=== PATIENT | female | born 1965 | race Caucasian/White ===

== ENCOUNTER 2018-05-27 13:54 | Observation (INO) ==
[2018-05-27] MEDS ORDERED: Morphine Sulfate Inj 2 MG/ML Vial IV.PUSH PRN (17:44)
[2018-05-27] MEDS ORDERED: Aspirin 325 MG Tablet PO ONE (17:45)
[2018-05-27] MEDS ORDERED: Sod Chloride 0.9% Inj 1,000 ML IV.CONT SCH (17:45)
[2018-05-27 21:27] LABS: Creatine Kinase 51 U/L (26-192)
[2018-05-27] MEDS ORDERED: Acetaminophen 325 MG Tablet PO PRN (23:48)
[2018-05-28 00:36] VITALS: RESP 18
[2018-05-28 02:28] LABS: Chol/HDL Ratio 3.51 Ratio; HDL Cholesterol 59.1 mg/dL (40.0-60.0)
[2018-05-28] MEDS: Acetaminophen 325 MG Tablet PO PRN ×2 (07:46→16:50)
--- NOTE | 2018-05-28 09:02 | P.HPIM ---
History of Present Illness Primary Care Physician: UNKNOWN Chief Complaint: Chest pain History of Present Illness: This is a 53-year-old female patient with a known medical history of CAD, hypertension, hyperlipidemia and hypothyroidism who presented to the ED with complaints of chest pain. Patient states that 3 days ago when she was resting in bed she was awoken out of sleep due to a midsternal chest pain, she states that the pain is pressure-like in nature, rated an 8 out of 10 at its worst on pain scale, states that the pain comes and goes for several minutes and then goes away on its own without any known aggravating or alleviating factors. She states the pain started in the midsternal chest and radiated up her right and left shoulders and into her head. She does admit to associated nausea, shortness of breath and diaphoresis, denies any actual vomiting. Patient denies any new changes to her medications. Follows closely with her primary care physician. She does not follow with a chemist pharmaceutical. She does admit to undergoing a cardiac cath roughly 1-1/2 years ago and at that time no stent was placed but she was told that she had a 65% blockage in 1 of her arteries which she cannot recall which one. She does not take an aspirin a day. Denies any recent illness including fever, chills, cough, headache, dumping, nausea, vomiting, diarrhea or dysuria. She does admit to a significant family medical history of her father dying at the age of 52 secondary to a heart attack. Review of Systems Review of Systems: all other systems reviewed are negative [facility] Medical History Medical History Hyperlipemia (Acute) Hypertension (Acute) Hypothyroid (Acute) Surgical History Surgical History History of cholecystectomy (Acute) Social History Social History Substance History: No History of Abuse Second Hand Smoke Exposure: No Smoking Status: Never smoker How Often Do You Have a Drink Containing Alcohol: Never Recent Travel in [facility] within the Last 8 Weeks: No Recent Out of Country Travel within the Last 8 Weeks: No Medications and Allergies Allergies Allergy/AdvReac Type Severity Reaction Status Date / Time penicillin G Allergy Intermediate RASH, Unverified 05/27/18 14:15 DIZZINESS aspirin AdvReac Intermediate Ulcers Verified 05/27/18 14:15 Home Medications Medication Instructions Recorded Confirmed Type levothyroxine 0.125 mg.pe PO DAILY 05/27/18 05/27/18 History lisinopril [Prinivil] 10 mg PO DAILY 05/27/18 05/27/18 History pravastatin 10 mg PO DAILY 05/27/18 05/27/18 History Active Medications: Active Medications Acetaminophen (Tylenol) 650 mg PO Q4H PRN PRN Reason: HEADACHE OR TEMP > 101 F Last Admin: 05/28/18 07:46 Dose: 650 mg Sodium Chloride (Ns Inj) 1,000 mls @ 42 mls/hr IV.CONT .[id number] RICKI Last Admin: 05/27/18 20:25 Dose: 42 mls/hr Morphine Sulfate (Morphine Inj) 2 mg IV.PUSH Q4H PRN PRN Reason: PAIN SCALE 1 TO 10 Last Admin: 05/27/18 22:38 Dose: 2 mg Nitroglycerin (Nitrostat Sl) 0.4 mg SL Q5M PRN PRN Reason: CHEST PAIN Last Admin: 05/27/18 23:25 Dose: 0.4 mg Sodium Chloride (Ns Flush) 2 ml IV.FLUSH BID RICKI Last Admin: 05/27/18 20:27 Dose: 2 ml Sodium Chloride (Ns Flush) 2 ml IV.FLUSH PRN PRN PRN Reason: FLUSH AFTER USING IV ACCESS Physical Exam Vital signs: Vital Signs 05/27/18 20:00 05/27/18 20:30 05/27/18 23:25 Temperature 97.7 F Pulse Rate 63 63 Respiratory Rate 18 16 Blood Pressure 132/75 Pulse Oximetry 98 05/28/18 00:00 05/28/18 04:00 Temperature 97.0 F L 97.2 F L Pulse Rate 65 66 Respiratory Rate 18 18 Blood Pressure 119/61 94/52 L Pulse Oximetry 98 98 Intake & Output 05/27/18 05/28/18 05/28/18 18:59 06:59 18:59 Intake Total 200 / 200 Balance 200 / 200 Weight 73.3 kg Intake: Oral Supplement 200 / 200 Other: # Voids 2 Date of Last Bowel Movement 05/27/18 Weight On Admission 73.3 kg Narrative: GENERAL: Well-developed, well-nourished patient in NAD. SKIN: Warm and dry. No rash. HEAD: Normocephalic. Atraumatic. EYES: Pupils equal and round. No scleral icterus. No injection or drainage. ENT: No nasal bleeding or discharge. Mucous membranes pink and moist. NECK: Supple. Trachea midline. CARDIOVASCULAR: Regular rate and rhythm. S1, S2 noted. No murmur appreciated. No chest pain to palpation RESPIRATORY: No accessory muscle use. Clear to auscultation. Breath sounds equal bilaterally. GASTROINTESTINAL: Abdomen soft, non-tender, nondistended. Normoactive bowel sounds x4. MUSCULOSKELETAL: No obvious deformities. Extremities without clubbing, cyanosis , or edema. NEUROLOGICAL: Awake and alert. No obvious cranial nerve deficits. Motor grossly within normal limits. 5/5 muscle strength in bilateral upper and lower extremities. Normal speech. PSYCHIATRIC: Appropriate mood and affect; insight and judgment normal. Caprini VTE Risk Assessment Caprini VTE Risk Assessment: No/Low Risk (score <= 1) Caprini Risk Assessment Model: Point Value = 1 Point Value = 2 Point Value = 3 Point Value = 5 Age 41-60 Minor surgery BMI > 25 kg/m2 Swollen legs Varicose veins or History of unexplained or recurrent spontaneous Oral contraceptives or hormone replacement Sepsis (< 1 month) Serious lung disease, including pneumonia (< 1 month) Abnormal pulmonary function Acute myocardial infarction Congestive heart failure (< 1 month) History of inflammatory bowel disease Medical patient at bed rest Age 61-74 Arthroscopic surgery Major open surgery (> 45 min) Laparoscopic surgery (> 45 min) Malignancy Confined to bed (> 72 hours) Immobilizing plaster cast Central venous access Age >= 75 History of VTE Family history of VTE Factor V Leiden Prothrombin [id number] Lupus anticoagulant Anticardiolipin antibodies Elevated serum homocysteine Heparin-induced thrombocytopenia Other congenital or acquired thrombophilia Stroke (< 1 month) Elective arthroplasty Hip, pelvis, or leg fracture Acute spinal cord injury (< 1 month) Prophylaxis Regimen: Total Risk Factor Score Risk Level Prophylaxis Regimen 0-1 Low Early ambulation 2 Moderate Order ONE of the following: *Sequential Compression Device (SCD) *Heparin 5000 units SQ BID 3-4 Higher Order ONE of the following medications: *Heparin 5000 units SQ TID *Enoxaparin/Lovenox 40 mg SQ daily (WT < 150 kg, CrCl > 30 mL/min) *Enoxaparin/Lovenox 30 mg SQ daily (WT < 150 kg, CrCl > 10-29 mL/min) *Enoxaparin/Lovenox 30 mg SQ BID (WT < 150 kg, CrCl > 30 mL/min) AND/OR *Sequential Compression Device (SCD) 5 or more Highest Order ONE of the following medications: *Heparin 5000 units SQ TID (Preferred with Epidurals) *Enoxaparin/Lovenox 40 mg SQ daily (WT < 150 kg, CrCl > 30 mL/min) *Enoxaparin/Lovenox 30 mg SQ daily (WT < 150 kg, CrCl > 10-29 mL/min) *Enoxaparin/Lovenox 30 mg SQ BID (WT < 150 kg, CrCl > 30 mL/min) AND *Sequential Compression Device (SCD) Assessment and Plan Plan This is a 53-year-old female patient with no medical history of CAD, hypertension, hyperlipidemia and hypothyroidism who presented the ED with complaints of chest pain. Chest pain -Patient presents with a 3-day complaint of intermittent chest pressure. She has been admitted to the chest pain center for observation. -Serial EKGs and serial troponins been ordered for ruling out ACS purposes. Troponin trend flat. -EKG reviewed showing controlled heart rate, normal sinus rhythm, no ST changes to indicate any ischemia. -Patient continue on cardiac telemetry, monitor for any arrhythmias. None noted at this time. -Chest x-ray reviewed showing no acute cardiopulmonary disease. -Chest pain is now controlled. We will continue to monitor. -Patient has a significant history of her father having an [place] at the age of 52. Does have hyperlipidemia as well as hypertension and history of CAD. -Last cardiac cath was 1-1/2 years ago and at that time was told she had a 65% blockage in 1 of her arteries. -ACS ruled out with serial EKGs and serial troponins, patient will undergo cardiac myocardial perfusion scan to further rule out any ischemia. -Patient stable this time and agreeable to plan. Further hospitalization and treatment plan will depend on nuclear imaging results. Hypertension -Patient's blood pressure with systolic in the 90s, will hold lisinopril for now. Continue to monitor blood pressure trends. Hypothyroidism -Will continue home levothyroxine. Stable at this time. DVT prophylaxis: SCDs. Ambulation. Discussed with patient, Dr. pontey H&P: Quality VTE Deep Vein Thrombosis/Pulmonary Embolism Present on Admission: No
[2018-05-28] MEDS ORDERED: Regadenoson Inj 0.4 MG/5 ML Syringe IV.PUSH ONE (09:19)
[2018-05-28 09:44] VITALS: BP 111/60; TEMP 96.6
[2018-05-28] MEDS ORDERED: Levothyroxine 125 MCG Tablet PO SCH (10:00)
--- NOTE | 2018-05-28 10:07 | ECG ---
Date Performed: 05/27/2018 Time Performed: 20:44:43 PTAGE: 53 years EKG: Sinus rhythm WITH SHORT LA INTERVAL BORDERLINE ECG No significant change PREVIOUS TRACING : 05/27/2018 17.10 DOCTOR: Norman Soriano Interpretating Date/Time 05/28/2018 10:06:40
--- NOTE | 2018-05-28 10:10 | ECG ---
Date Performed: 05/27/2018 Time Performed: 17:10:26 PTAGE: 53 years EKG: SINUS BRADYCARDIA BORDERLINE ECG Nonspecific T wave changes persist but normalized somewhat since previous NO PREVIOUS TRACING DOCTOR: Norman Soriano Interpretating Date/Time 05/28/2018 10:08:45
--- NOTE | 2018-05-28 13:15 | NM ---
EXAM DATE: 05/28/2018 1:02 PM EST AGE/SEX: 53 years / Female INDICATIONS:Angina. . Substernal chest pain. CLINICAL DATA: This is the patient's initial encounter. Patient reports that signs and symptoms have been present for 1 day and indicates a pain score of 3/10. MEDICAL/SURGICAL HISTORY: Hypertension. Hypothyroidism. Cholecystectomy. Hysterectomy. COMPARISON: No prior exams available for comparison. DOSE: 8.5 mCi Tc 99m Myoview at rest 25.4 mCi [id number] at stress 0.4 mg Lexiscan STRESS SYMPTOMS: Dyspnea, chest pressure, stomach pressure and headache. EJECTION FRACTION: 62 % TECHNIQUE: The patient underwent pharmacologic stress with infusion of prescribed dose. Continuous ECG tracing was monitored during stress. Gated SPECT imaging was performed after stress and conventi onal SPECT imaging was performed at rest. The examination was performed on a SPECT/CT scanner, both attenuation and non-corrected datasets were reviewed. FINDINGS: Distribution: The maximum perfused segment at stress is in the inferior wall. Perfusion Study: There is mildly decreased perfusion in the anterior wall and apex with mild redistri bution on the stress images. Gated Study: There are intact wall motion and wall thickening without hypokinetic or dyskinetic segm ents. The ejection fraction is calculated at 62%. RISK CATEGORY: Low (<1% Annual Mortality Rate) CONCLUSION: 1. Normal wall motion and calculated ejection fraction. 2. Mildly decreased perfusion in the anterior wall and apex with mild redistribution on the stress i mages which may be artifactual.. Electronically signed by: Ted Campa MD Board Certified Radiologist 05/28/2018 1:14 PM EST
[2018-05-28 15:35] VITALS: PULSE 72
[2018-05-28 18:05] LABS: Baso % (Auto) 0.7 % (0.0-2.0); Eos # (Auto) 0.1 th/mm3 (0.0-0.4); Eos % (Auto) 2.6 % (0.0-4.0); Hematocrit 40.3 % (35.0-46.0); Hemoglobin 13.3 gm/dL (11.6-15.3); Lymph # (Auto) 1.8 th/mm3 (1.0-4.8); Lymph % (Auto) 39.4 % (9.0-44.0); Mean Corpuscular HGB Conc 32.9 % (32.0-36.0); Mean Corpuscular Hemoglobin 26.8 pg (27.0-34.0); Mean Corpuscular Volume 81.3 fL (80.0-100.0); Mean Platelet Volume 8.7 fL (7.0-11.0); Mono # (Auto) 0.3 th/mm3 (0.0-0.9); Mono % (Auto) 6.7 % (0.0-8.0); Neut # (Auto) 2.3 th/mm3 (1.8-7.7); Neut % (Auto) 50.6 % (16.0-70.0); Platelet Count 197 th/mm3 (150-450); Red Blood Count 4.95 mil/mm3 (4.00-5.30); Red Cell Distribution Width 14.9 % (11.6-17.2); White Blood Count 4.5 th/mm3 (4.0-11.0)
[2018-05-28] MEDS ORDERED: Iohexol 350 MG/ML 100 ML Vial (for Cath Lab) IVCONTRAST ONE (18:05)
[2018-05-28] MEDS ORDERED: Heparin/NS PF Inj 500 ML ONE (18:13)
[2018-05-28] MEDS ORDERED: fentaNYL Citrate Inj 100 MCG/2 ML Ampul ONE (18:13)
[2018-05-28 18:23] LABS: Anion Gap 7 meq/L (5-15); Blood Urea Nitrogen 11 mg/dL (7-18); Calcium 8.4 mg/dL (8.5-10.1); Chloride 108 meq/L (98-107); Glomerular Filtration Rate Greater Than 89 mL/min (>89); Glucose,Random 88 mg/dL (74-106); Potassium 3.8 meq/L (3.5-5.1); Sodium 141 meq/L (136-145)
--- NOTE | 2018-05-28 18:51 | CATHPROC ---
[employer] HIS Report Study Information Study Number Admission Scheduled Start Study Start [id number] May 27 2018 7:45PM 05/28/2018 May 28 2018 6:01PM [place] [facility] Cardiac Catheterization Admit Source Facility Department Emergency department [facility] - Consulting Marine Engineer Physician and Clinical Staff Initial Denise Zamudio Machine Tool Electrician Blossom Maria,VERENICE Recorder Sharlene Rogers,RT(R) Scrub Ron Mcleod,RT(R) Procedures Performed Procedure Location (Site) Vessel Name Angiogram LV LV Ventricle Coronary Angiograms LCA Left Coronary Coronary Angiograms RCA Right Coronary L Heart Cath Equipment Time Spragger Description Size Mfg Part Number Used/Scraped TRANSDUCER, TRUWAVE [id number] 18:02 maufait * Used W/STOCKCOCK *[id number] 18:47 [employer] MEDICAL VASCADE, FR5 CLOSURE SYSTEM FR 5 Used *[id number] *[id number] [id number] *[id number] [id number] *[id number] MEDICAL CONCEPT DRAPE, RADIAL FEMORAL FULL 18:26 * [id number] *[id number] Used DEVELOPMENT BODY [id number] 18:02 [employer] BLANKET,WARM AIR CCL * Used *[id number] 18:02 [employer] PACK, CCL CUSTOM * Used *[id number] 18:02 [employer] PACER PEN, SKIN DUAL W/ RULER * Used *[id number] 18:02 RPI ([employer]) WIRE, 3MMJ .035 180CM 180CM Used *[id number] PROBE COVER, STERILE [id number] 18:02 [employer] * Used ULTRASOUND W/ GEL *[id number] 18:02 NAMIC MANIFOLD, 4 PORT * Used *[id number] 18:02 NAMIC TUBING, HIGH PRESSURE 48" 48" Used *[id number] 18:02 [employer] OMNIPAQUE, 350 MG, 150ML 150ML [id number] Used 18:33 NY[employer]ED OMNIPAQUE, 350 MG, 50ML 50ML [id number] Used [id number] 18:02 TERUMO MEDICAL SHEATH, FR5 TERUMO (10CM) FR 5 Used *[id number] History: Allergies Allergy Reaction aspirin Ulcers penicillin G RASH, DIZZINESS History: Risk Factors Family History of Hypertension Dyslipidemia Previous AL Previous Heart Failure Premature CAD Yes Yes Yes No No Prior Valve Prior PCI Prior CABG Surgery No No No Cerebrovascular Peripheral Artery Chronic Lung On Dialysis Diabetes Disease Disease Disease No No No No No History: Stress Tests Stress or Imaging Studies Performed Yes Stress Test SPECT Stress Test SPECT Result Stress Test SPECT Ischemia Risk/Extent Yes Positive Intermediate History: Other Current Smoker No Labs Hgb (g/dl) Hct (%) WBC (l/cumm) Platelets (thousands) 11.60-17.00 35.00-51.00 4.00-11.00 150.00-450.00 13.3 40.3 4.9 197 Troponin I (ng/ml) 0.02-0.05 0.02 Medication Medication Total Dose (Bolus/Oral) Medication Total Dosage/Unit 1% XYLOCAINE 20 mL FENTANYL 50 mcg VERSED 3 mg Medications (Bolus/Oral) Medication Time Given Dosage/Unit Administered By Reason VERSED 05/28/2018 6:16:07 PM 2 mg Hesher, Blossom 2 mg VERSED given in lab by Blossom Maria RN in Left Antecubital via Peripheral IV. Ordered by Denise George. FENTANYL 05/28/2018 6:17:40 PM 50 mcg Suzanneher, Blossom 50 mcg FENTANYL given in lab by Blossom Maria RN in Left Antecubital via Peripheral IV. Ordered by Denise Abel. VERSED 05/28/2018 6:25:30 PM 1 mg Hesher, Blossom 1 mg VERSED given in lab by Blossom Maria RN in Left Antecubital via Peripheral IV. Ordered by Denise George. 1% XYLOCAINE 05/28/2018 6:28:20 PM 20 mL Denise Abel 20 mL 1% XYLOCAINE given in lab by Denise Abel in Right Groin via Subcutaneous. Medication (Drip) Medication Time Given Dosage/Unit Concentration/Unit Diluent (ml) Solution IV Solutions 05/28/2018 6:05:46 PM 50 mL (IV) NaCl .9 IV Solutions given in lab by Blossom Maria RN in Left Antecubital via Peripheral IV. Pump/Drip Flow using NaCl .9. Initial Case Assessment Cardiovascular Edema Present Skin color Skin None Normal Warm Dry Circulatory - Right Pulses Dorsalis Pedis Femoral 2 2 Scale (0,1,2,3,4,d) Circulatory - Left Pulses Dorsalis Pedis Femoral 2 2 Scale (0,1,2,3,4,d) Neurological State Oriented to time-place- Alert Moves all extremities person Chronological Log Time Study Chronological Log 18:05:08 Patient arrived via Bed. 18:05:08 Patient Name, D.O.B, / Armband Verified By R.N. 18:05:10 Consent signed by the physician and the patient and verified by the Consulting Marine Engineer staff. 18:05:39 Patient has been NPO for More than 6Hrs. 18:05:41 Skin Breakdown- none per pt 18:05:41 Patient Warmer Placed on the Table. 18:05:42 Rowan Prominences Protected 18:05:45 A # 20 IV was noted in the Antecubital (left). Grade = 0 18:05:46 IV Solutions given in lab by Blossom Maria RN in Left Antecubital via Peripheral IV. Pump /Drip Flow using NaCl .9. 18:05:46 History and physical on the chart or being dictated. Assessment: Initial Case, Edema=None, Color=Normal, Skin = Warm, Dry Right Pulses: Carrillo Ped=2, Femoral=2 18:05:48 Left Pulses: Carrillo Ped=2, Femoral=2 Neurological: State=Alert, Ox3, PAUL 18:12:33 Reference ECG taken 18:16:07 2 mg VERSED given in lab by Blossom Maria RN in Left Antecubital via Peripheral IV. Order ed by Denise Abel. Vitals capture started with the following parameters, Patient=Adult, Interval=5 min, Initial Pr mjmgkr=133 mmHg, 18:16:47 Deflation Rate=5 mmHg, Cuff placed on Left Arm 18:17:25 HR=66 bpm, KKBP=556/78 mmhg, SpO2=99.0 %, Resp=20 B/min 18:17:40 50 mcg FENTANYL given in lab by Blossom Maria, VERENICE in Left Antecubital via Peripheral IV. O rdered by Denise Abel. 18:21:40 Bilateral groins prepped with 2% chlorhexidine, and draped after a 3 minute waiting time. 18:22:24 HR=62 bpm, IDSX=555/58 mmhg, SpO2=95.0 %, Resp=14 B/min 18:24:35 Pressure channel 1 zeroed. 18:24:47 MD arrived. 18:25:30 1 mg VERSED given in lab by Blossom Maria RN in Left Antecubital via Peripheral IV. Order ed by Denise Abel. 18:27:19 HR=64 bpm, NIBP=98/53 mmhg, SpO2=95.0 %, Resp=13 B/min Time Out. Correct patient, correct procedure, correct physician, labs, allergies, and equipment verified with laboratory analyst 18:27:57 team present. Fire risk assesment completed (see hard stop sheet for coding). Time Out Conc urred by MD and individual staff in procedure. 18:28:18 Case Start 18:28:20 20 mL 1% XYLOCAINE given in lab by Denise Abel in Right Groin via Subcutaneous. 18:30:22 Access site was Right Femoral Artery via ultrasound. 18:30:40 A SHEATH, FR5 TERUMO (10CM) FR 5 was advanced into the Fem Art (right) using the Percutaneo us technique. A PIGTAIL ANG. INFINITI CATHETER FR 5 was advanced over a wire. OMNIPAQUE, 350 MG, 150ML 150ML was used 18:31:30 for injections. 18:32:20 HR=49 bpm, FAFU=899/54 mmhg, SpO2=96.0 %, Resp=15 B/min Recorded Pressure: LV, HR=70, Condition=Condition 1 18:32:23 (Left Ventricle) LV 102/6/16 18:33:16 The LV was injected at 10 cc/sec for a total of 30. OMNIPAQUE, 350 MG, 50ML 50ML used. Recorded Pressure: LV, Ao, HR=75, Condition=Condition 1 18:33:51 (Left Ventricle) LV 118/10/16, (Aorta) Ao 122/66/90 After removing the current catheter a JL 4.0 INFINITI CATHETER FR 5 was advanced over a WIRE, 3 MMJ .035 180CM 18:34:27 180CM. Recorded Pressure: Ao, HR=77, Condition=Condition 1 18:35:05 (Aorta) Ao 124/69/92 18:35:18 The LCA was injected and visualized at various angles. OMNIPAQUE, 350 MG, 150ML 150ML used . After removing the current catheter a AR MOD INFINITI CATHETER FR 5 was advanced over a WIRE, 3 MMJ .035 180CM 18:36:29 180CM. 18:37:21 HR=74 bpm, IBLI=424/67 mmhg, SpO2=96.0 %, Resp=20 B/min 18:37:51 The RCA was injected and visualized at various angles. OMNIPAQUE, 350 MG, 150ML 150ML used . 18:39:20 Catheter was removed 18:39:34 Case End (Physician broke scrub) 18:42:22 HR=74 bpm, FFRZ=288/68 mmhg, SpO2=96.0 %, Resp=23 B/min 18:45:09 An injection in the Fem Art (right) was made through the SHEATH, FR5 TERUMO (10CM) FR 5. 18:46:38 VASCADE, FR5 CLOSURE SYSTEM FR 5 placement in the Fem Art (right) 18:46:48 Sterile dressing applied to site 18:46:48 No case complications noted. 18:46:52 Bedside Report will be given. 18:46:53 Implantable Device card placed in patient's chart. 18:46:55 A Left Heart Cath was performed. 18:46:55 [facility] 18:46:59 Vitals capture stopped. End Study - Contrast Media Used In Study Contrast Total Opened (mL) Total Used (mL) Total Wasted (mL) Omnipaque 350 150 90 60 End Study - Radiation Exposure Fluoro Time Fluoro Dose (mGy) Cine Dose (uGym2) (minutes) 1.0 816 [id number] End Study - Patient Disposition Complications Transferred To Interventional Outcome No Outpatient Bed No attempt made
[2018-05-28 19:44] VITALS: O2SAT 100
--- NOTE | 2018-05-28 20:03 | P.CONCA ---
History of Present Illness Service: Cardiology Consult date: 05/28/18 Reason for Consult: Chest pain Primary Care Provider: UNKNOWN Chief Complaint: Chest pain PMFSH - History History Provided By: Patient - Medical History Medical History: Medical History (Last Reviewed 05/28/18 @ 09:02 by Sigrid Odom) Hyperlipemia Hypertension Hypothyroid - Surgical History Surgical History: Surgical History (Last Reviewed 05/28/18 @ 09:02 by Sigrid Odom) History of cholecystectomy - Family History Family History: Family History (Last Reviewed 05/28/18 @ 09:02 by Sigrid Odom) Other Cardiovascular disease - Tobacco History Second Hand Smoke Exposure: No Smoking Status: Never smoker - Alcohol History How Often Do You Have a Drink Containing Alcohol: Never - Substance Use History Substance History: No History of Abuse - Travel History Recent Travel in the [facility] Within the Last 8 Weeks: No Recent Travel Out of the Country Within the Last 8 Weeks: No Medications and Allergies Active Medications: Active Medications Acetaminophen (Tylenol) 650 mg PO Q4H PRN PRN Reason: HEADACHE OR TEMP > 101 F Last Admin: 05/28/18 16:50 Dose: 650 mg Albuterol (Albuterol Neb (Prn)) 2.5 mg NEB UNSCH PRN PRN Reason: SHORTNESS OF BREATH/WHEEZING Albuterol (Duoneb Neb (Prn)) 1 ampul NEB UNSCH PRN PRN Reason: SHORTNESS OF BREATH/WHEEZING Sodium Chloride (Ns Inj) 1,000 mls @ 30 mls/hr IV.CONT .Q24H [facility] Last Admin: 05/27/18 20:25 Dose: 42 mls/hr Levothyroxine Sodium (Synthroid) 125 mcg PO DAILY@0600 [facility] Last Admin: 05/28/18 10:23 Dose: 125 mcg Morphine Sulfate (Morphine Inj) 2 mg IV.PUSH Q4H PRN PRN Reason: PAIN SCALE 1 TO 10 Last Admin: 05/27/18 22:38 Dose: 2 mg Nitroglycerin (Nitrostat Sl) 0.4 mg SL Q5M PRN PRN Reason: CHEST PAIN Last Admin: 05/27/18 23:25 Dose: 0.4 mg Pravastatin Sodium (Pravachol) 10 mg PO DAILY [facility] Sodium Chloride (Ns Flush) 2 ml IV.FLUSH BID [facility] Last Admin: 05/28/18 10:23 Dose: Not Given Sodium Chloride (Ns Flush) 2 ml IV.FLUSH PRN PRN PRN Reason: FLUSH AFTER USING IV ACCESS Allergies Allergy/AdvReac Type Severity Reaction Status Date / Time penicillin G Allergy Intermediate RASH, Unverified 05/27/18 14:15 DIZZINESS aspirin AdvReac Intermediate Ulcers Verified 05/27/18 14:15 Home Medications Medication Instructions Recorded Confirmed Type levothyroxine 0.125 mg.pe PO DAILY 05/27/18 05/27/18 History lisinopril [Prinivil] 10 mg PO DAILY 05/27/18 05/27/18 History pravastatin 10 mg PO DAILY 05/27/18 05/27/18 History Exam Vital signs: Vital Signs 05/27/18 20:00 05/27/18 20:30 05/27/18 23:25 Temperature 97.7 F Pulse Rate 63 63 Respiratory Rate 18 16 Blood Pressure 132/75 Pulse Oximetry 98 05/28/18 00:00 05/28/18 04:00 05/28/18 08:00 Temperature 97.0 F L 97.2 F L 96.6 F L Pulse Rate 65 66 84 Respiratory Rate 18 18 15 Blood Pressure 119/61 94/52 L 111/60 Pulse Oximetry 98 98 99 05/28/18 08:16 05/28/18 12:00 Temperature Pulse Rate 72 Respiratory Rate 18 Blood Pressure Pulse Oximetry Intake & Output 05/28/18 05/28/18 05/29/18 06:59 18:59 06:59 Intake Total 200 / 200 Balance 200 / 200 Weight 73.3 kg Intake: Oral Supplement 200 / 200 Other: # Voids 2 Date of Last Bowel Movement 05/27/18 05/27/18 Weight On Admission 73.3 kg Results 05/28/18 17:48 05/28/18 17:48 Cardiac Enzymes 05/27/18 Range/Units 20:52 Troponin I Less than 0.02 L (0.02-0.05) ng/mL Lipids 05/27/18 Range/Units 20:52 Triglycerides 97 (42-150) mg/dL Cholesterol 208 H (120-200) mg/dL HDL Cholesterol 59.1 (40.0-60.0) mg/dL Cholesterol/HDL Ratio 3.51 Ratio CBC 05/28/18 Range/Units 17:48 WBC 4.5 (4.0-11.0) th/mm3 RBC 4.95 (4.00-5.30) mil/mm3 Hgb 13.3 (11.6-15.3) gm/dL Hct 40.3 (35.0-46.0) % Plt Count 197 (150-450) th/mm3 Neut # (Auto) 2.3 (1.8-7.7) th/mm3 Lymph # (Auto) 1.8 (1.0-4.8) th/mm3 [place] # (Auto) 0.3 (0.0-0.9) th/mm3 Eos # (Auto) 0.1 (0.0-0.4) th/mm3 Baso # (Auto) 0.0 (0.0-0.2) th/mm3 Comprehensive Metabolic Panel 05/28/18 Range/Units 17:48 Sodium 141 (136-145) meq/L Potassium 3.8 (3.5-5.1) meq/L Chloride 108 H (98-107) meq/L Carbon Dioxide 26.0 (21.0-32.0) meq/L BUN 11 (7-18) mg/dL Creatinine 0.64 (0.50-1.00) mg/dL Calcium 8.4 L (8.5-10.1) mg/dL Intake and Output 05/28/18 05/28/18 05/28/18 06:59 14:59 22:59 Intake Total 200 / 200 Balance 200 / 200 Intake: Oral Supplement 200 / 200 Other: # Voids 2 Date of Last Bowel Movement 05/27/18 - Imaging and Cardiology Imaging: Impressions Myocardial Perfusion Scan Nuc Med 05/28/18 00:00 CONCLUSION: 1. Normal wall motion and calculated ejection fraction. 2. Mildly decreased perfusion in the anterior wall and apex with mild redistribution on the stress images which may be artifactual..
--- NOTE | 2018-05-28 20:37 | MR ---
cc: Denise Abel MD DATE: 05/28/2018 PREOPERATIVE DIAGNOSIS: Class 3 angina, intermediate probability nuclear myocardial perfusion study. PROCEDURE PERFORMED: 1. Retrograde left heart catheterization with left ventriculography and selective coronary angiography. 2. Moderate sedation. ACCESS SITE: Right femoral artery. EQUIPMENT USED: A 5-Vietnamese pigtail catheter, 5-Vietnamese JL4 and AR modified coronary artery catheters. MEDICATIONS: Versed IV, fentanyl IV. CONTRAST: Omnipaque 90 mL. COMPLICATIONS: None. BLOOD LOSS: Less than 10 mL METHOD OF HEMOSTASIS: Vascade closure. RESULTS: A. Hemodynamics: Heart rate 65 beats per minute, left ventricular end-diastolic pressure 10 mmHg, left ventricle 120/10, aorta 120/69/92. B. Left ventriculography: Ejection fraction 60%. Wall motion normal. No mitral regurgitation. C. Coronary angiography: Left main coronary artery patent. Left anterior descending artery patent. D1 patent. Left circumflex artery patent. OM1 patent. OM2 patent. OM3 patent. Right coronary artery is a dominant vessel which is patent. PDA patent. PLV patent. DIAGNOSES: 1. Widely patent coronary arteries. 2. Preserved left ventricular systolic function. DISPOSITION: Ms. Andrews can be reassured about her cardiac status. Her study revealed widely patent coronary arteries and preserved left ventricular systolic function. She will be discharged home later today. Denise Abel MD OQ/rm/do , 06:47 PM , 06:52 PM [facility]ITALStephon
--- NOTE | 2018-05-28 21:03 | P.CONCA ---
History of Present Illness Service: Cardiology Consult date: 05/28/18 Reason for Consult: Chest pain Primary Care Provider: UNKNOWN Chief Complaint: Chest pain History of Present Illness: Late entry. This is a 53-year-old female with a past medical history of CAD, hypertension, hyperlipidemia and hypothyroidism. On 05/27/18 she presented to the Emergency Department with complaints of chest pain 8/10 at it's worst. She stated that 3 days ago when she was resting in bed, she was woken out of a sleep due to midsternal chest pain that came and went for several minutes without any aggravating or alleviating factors. She described the pain as a pressure that radiated up into her left and right shoulders and into her head. Along with the pain, she states that she had nausea, diaphoresis and shortness of breath. She stated that she had a cardiac catheterization approximately 1.5 years ago and was told that she had 65% blockage of one of the coronary arteries , but she is unsure of which one. Currently, she denies any CP, pressure, palpitations, dizziness, edema or shortness of breath. Review of Systems All other systems reviewed negative except as stated in HPI PMFSH - History History Provided By: Patient - Medical History Medical History: Medical History (Last Reviewed 05/28/18 @ 09:02 by Sigrid Odom) Hyperlipemia Hypertension Hypothyroid - Surgical History Surgical History: Surgical History (Last Reviewed 05/28/18 @ 09:02 by Sigrid Odom) History of cholecystectomy - Family History Family History: Family History (Last Reviewed 05/28/18 @ 09:02 by Sigrid Odom) Other Cardiovascular disease - Tobacco History Second Hand Smoke Exposure: No Smoking Status: Never smoker - Alcohol History How Often Do You Have a Drink Containing Alcohol: Never - Substance Use History Substance History: No History of Abuse - Travel History Recent Travel in the [place] Within the Last 8 Weeks: No Recent Travel Out of the Country Within the Last 8 Weeks: No Medications and Allergies Allergies Allergy/AdvReac Type Severity Reaction Status Date / Time penicillin G Allergy Intermediate RASH, Unverified 05/27/18 14:15 DIZZINESS aspirin AdvReac Intermediate Ulcers Verified 05/27/18 14:15 Home Medications Medication Instructions Recorded Confirmed Type levothyroxine 0.125 mg.pe PO DAILY 05/27/18 05/27/18 History lisinopril [Prinivil] 10 mg PO DAILY 05/27/18 05/27/18 History pravastatin 10 mg PO DAILY 05/27/18 05/27/18 History Active Medications: Active Medications Acetaminophen (Tylenol) 650 mg PO Q4H PRN PRN Reason: HEADACHE OR TEMP > 101 F Last Admin: 05/28/18 16:50 Dose: 650 mg Albuterol (Albuterol Neb (Prn)) 2.5 mg NEB UNSCH PRN PRN Reason: SHORTNESS OF BREATH/WHEEZING Albuterol (Duoneb Neb (Prn)) 1 ampul NEB UNSCH PRN PRN Reason: SHORTNESS OF BREATH/WHEEZING Sodium Chloride (Ns Inj) 1,000 mls @ 30 mls/hr IV.CONT .Q24H [facility] Last Admin: 05/27/18 20:25 Dose: 42 mls/hr Levothyroxine Sodium (Synthroid) 125 mcg PO DAILY@0600 [facility] Last Admin: 05/28/18 10:23 Dose: 125 mcg Morphine Sulfate (Morphine Inj) 2 mg IV.PUSH Q4H PRN PRN Reason: PAIN SCALE 1 TO 10 Last Admin: 05/27/18 22:38 Dose: 2 mg Nitroglycerin (Nitrostat Sl) 0.4 mg SL Q5M PRN PRN Reason: CHEST PAIN Last Admin: 05/27/18 23:25 Dose: 0.4 mg Pravastatin Sodium (Pravachol) 10 mg PO DAILY [facility] Sodium Chloride (Ns Flush) 2 ml IV.FLUSH BID [facility] Last Admin: 05/28/18 10:23 Dose: Not Given Sodium Chloride (Ns Flush) 2 ml IV.FLUSH PRN PRN PRN Reason: FLUSH AFTER USING IV ACCESS Exam Vital signs: Vital Signs 05/27/18 20:30 05/27/18 23:25 05/28/18 00:00 Temperature 97.0 F L Pulse Rate 63 65 Respiratory Rate 16 18 Blood Pressure 119/61 Pulse Oximetry 98 05/28/18 04:00 05/28/18 08:00 05/28/18 08:16 Temperature 97.2 F L 96.6 F L Pulse Rate 66 84 Respiratory Rate 18 15 18 Blood Pressure 94/52 L 111/60 Pulse Oximetry 98 99 05/28/18 12:00 05/28/18 18:55 Temperature Pulse Rate 72 Respiratory Rate Blood Pressure Pulse Oximetry 100 Intake & Output 05/28/18 05/28/18 05/29/18 06:59 18:59 06:59 Intake Total 200 / 200 Balance 200 / 200 Weight 73.3 kg Intake: Oral Supplement 200 / 200 Other: # Voids 2 Date of Last Bowel Movement 05/27/18 05/27/18 Weight On Admission 73.3 kg - Constitutional no acute distress - Routine HEENT Exam Head: Present: normocephalic Eye: Present: PERRL ENT: Present: mucous membranes moist - Routine Neck Exam Present: full ROM - Routine Respiratory Exam Present: CTA bilaterally - Routine Cardiovascular Exam Present: S1, S2, murmur - Routine Abdominal Exam Present: normoactive bowel sounds - Routine Extremities Exam Present: full ROM, pulses intact, normal capillary refill - Routine Skin Exam Present: intact - Routine Neurological Exam Present: oriented X3 Results 05/28/18 17:48 05/28/18 17:48 Cardiac Enzymes 05/27/18 Range/Units 20:52 Troponin I Less than 0.02 L (0.02-0.05) ng/mL Lipids 05/27/18 Range/Units 20:52 Triglycerides 97 (42-150) mg/dL Cholesterol 208 H (120-200) mg/dL HDL Cholesterol 59.1 (40.0-60.0) mg/dL Cholesterol/HDL Ratio 3.51 Ratio CBC 05/28/18 Range/Units 17:48 WBC 4.5 (4.0-11.0) th/mm3 RBC 4.95 (4.00-5.30) mil/mm3 Hgb 13.3 (11.6-15.3) gm/dL Hct 40.3 (35.0-46.0) % Plt Count 197 (150-450) th/mm3 Neut # (Auto) 2.3 (1.8-7.7) th/mm3 Lymph # (Auto) 1.8 (1.0-4.8) th/mm3 [place] # (Auto) 0.3 (0.0-0.9) th/mm3 Eos # (Auto) 0.1 (0.0-0.4) th/mm3 Baso # (Auto) 0.0 (0.0-0.2) th/mm3 Comprehensive Metabolic Panel 02/20/19 Range/Units 17:48 Sodium 141 (136-145) meq/L Potassium 3.8 (3.5-5.1) meq/L Chloride 108 H (98-107) meq/L Carbon Dioxide 26.0 (21.0-32.0) meq/L BUN 11 (7-18) mg/dL Creatinine 0.64 (0.50-1.00) mg/dL Calcium 8.4 L (8.5-10.1) mg/dL Intake and Output 05/28/18 05/28/18 05/28/18 06:59 14:59 22:59 Intake Total 200 / 200 Balance 200 / 200 Intake: Oral Supplement 200 / 200 Other: # Voids 2 Date of Last Bowel Movement 05/27/18 - Imaging and Cardiology Imaging: Impressions Myocardial Perfusion Scan Nuc Med 05/28/18 00:00 CONCLUSION: 1. Normal wall motion and calculated ejection fraction. 2. Mildly decreased perfusion in the anterior wall and apex with mild redistribution on the stress images which may be artifactual.. Assessment and Plan - Assessment (1) Chest pain Code(s): R07.9 - Chest pain, unspecified Status: Acute (2) CAD (coronary artery disease) Code(s): I25.10 - Atherosclerotic heart disease of [place] coronary artery without angina pectoris Status: Acute (3) Hypertension Code(s): I10 - Essential (primary) hypertension Status: Acute - Plan Patient had an abnormal myocardial perfusion scan c/w ischemia. We will proceed with cardiac catheterization at this time. Keep patient NPO except for medication. Have consent signed for cardiac catheterization with possible angioplasty and stent placement. Continue to monitor the patient telemetry. We will continue to monitor the patient during her hospitalization. The patient was seen and evaluated by Dr. Abel who participated in care, management and decision making. - Attending Attestation Patient seen and examined. I reviewed and agree with the evaluation and plan as presented. Proceed with cath and PCI if necessary.
--- NOTE | 2018-05-29 12:34 | TR ---
Date Performed: 05/28/2018 Time Performed: 12:20:14 DOCTOR: Norman Soriano DRUG LIST: CLINICAL HISTORY: CHEST PAIN REASON FOR TEST: Chest pain REASON FOR ENDING: OBSERVATION: CONCLUSION: Lexiscan stress test was performed under standard four minute protocol. Radionuclide was injected one minute prior to ending the test. No electrocardiographic abormalities were present to suggest ischemia. Nuclear imaging and interpretation are pending. COMMENTS:
== END 2018-05-28 21:30 | disposition home or self-care (01) ==
LOC: PHEDA 13:54 → PHEDDLT 13:54 → HCIS 05-28 16:30
PROVIDERS: ADMIT Hospitalist; ATTEND Hospitalist
DX: R11.0 Nausea; E03.9 Hypothyroidism, unspecified; I10 Essential (primary) hypertension; Z79.899 Other long term (current) drug therapy; E78.5 Hyperlipidemia, unspecified; R07.9 Chest pain, unspecified; R06.02 Shortness of breath; I25.10 Atherosclerotic heart disease of native coronary artery without angina pectoris
CPT/HCPCS: 71275; 78452; 80048; 80053; 80061; 82550; 83690; 83735; 84484; 85025; 85610; 85730; 90774; 93005; 93017; 93458; 96374; 99152; 99153; 99285; A9502; C1760; C1769; C1893; G0269; G0378; J1644; J2250; J2270; J2785; J3010; J7030; Q9967; Q9969